=== PATIENT | female | born 1970 | race Caucasian/White ===

== ENCOUNTER 2016-05-06 11:27 | Emergency (ER) | payer OTHER ==
[~2016-05-06] VITALS: Ht 165.1 cm; Wt 105.6 kg
[~2016-05-06 11:27] MED LIST: ALBU1AER9 INH; BCPILLS PO; CHOL100010 PO; CYM/30 PO; LORA-741 PO; MECL1TAB42 PO; MELA1TAB3 PO; NPR500 PO; TIZA6CAP PO; TRAM-10 PO
[2016-05-06 11:32] VITALS: TEMP 36.9; Ht 165.1 cm; Wt 105.6 kg
[2016-05-06] MEDS ORDERED: ERGO1CAP41 PO (11:43)
[2016-05-06] MEDS ORDERED: GABA-112 PO (11:44)
[2016-05-06] MEDS ORDERED: OMEP40CA PO (11:44)
[2016-05-06] MEDS ORDERED: BND25 PO (11:45)
[2016-05-06] MEDS ORDERED: PROCHLORPERAZINE 5 MG/ML 2 ML VIAL IV STA (12:15)
[2016-05-06] MEDS ORDERED: DiphenhydrAMINE HCL 50 MG/ML VIAL IV STA (12:15)
[2016-05-06] MEDS ORDERED: SODIUM CHLORIDE 0.9% 500ML 500 ML IV STA (12:15)
[2016-05-06] MEDS ORDERED: ASPIRIN 81 MG CHEW PO STA (12:15)
--- NOTE | 2016-05-06 12:27 | EMERGENCY ROOM VISIT NOTE ---
History Report prepared by Nafisa: Valeria Monzon Under the Supervision of: Dr. Juli Latif M.D. First contact with patient: 12:10 Chief Complaint: HYPERTENSION Stated Complaint: CHEST/SHOULDER/ARM PAIN, ALANIZ, SOB, NAUSEA, DIZZY History of Present Illness The patient is a 45 year old female who presents to the Emergency Room with complaints of chest pain that has been constant over the past week. She also developed bilateral arm pain that extends further down her left arm than her right when her chest pain began. She has had chest pains in the past, but nothing that has persisted as long as this. Today, her chest pain is not as bad as it has been over the past few days. About 2.5 days ago, the patient developed a "massive" headache at the top of her head. Last night it eased up some and today it has been coming in jolts of stabbing pain that radiate through her jaw. She states that she does not typically get headaches. She also has been nauseated since her headache started. Today, the patient took her blood pressure and it was 145/90, which is high for her. She gets her blood pressure annually at her PCP office and it has always been normal or low. She notes that she does have a history of anxiety but does not have any personal history of hypertension, heart disease, or diabetes. There is a family history of heart disease and hypertension. The patient has an appointment scheduled with her PCP, Dr. Dela Cruz, next week. She called the office today regarding her symptoms and was referred to the emergency room. The patient reports that she occasionally takes Naproxen for chronic pain but does not take it daily. She took a dose yesterday but has not taken anything for pain today. She has not taken aspirin. Source of History: patient Onset: a week ago Position: chest Timing: constant Associated Symptoms: + headache, + nausea Note: Other complaints: Bilateral arm pain Review of Systems See HPI for pertinent positives & negatives. A total of 10 systems reviewed and were otherwise negative. Past Medical & Surgical Surgical Problems: (1) History of hysterectomy (2) History of tonsillectomy Family History Heart disease Hypertension Social History Smoking Status: Current Every Day Smoker Alcohol Use: occasionally Marital Status: Occupation Status: employed Current/Historical Medications Scheduled Duloxetine Hcl (Cymbalta), 60 MG PO DAILY Ergocalciferol (Vitamin D 57999 Unit), 1 TAB PO WK Gabapentin (Neurontin), 200 MG PO TID Melatonin-Pyridoxine (Melatonin), 10 MG PO HS Omeprazole (Prilosec), 40 MG PO DAILY Scheduled PRN Albuterol Sulfate (Proair Hfa), 2 PUFF INH QID PRN for bronchitis Diphenhydramine Hcl (Benadryl), 50 MG PO HS PRN for Sleep Lorazepam (Ativan), 0.5-1 MG PO TID PRN for Anxiety Meclizine Hcl (Meclizine Hcl), 25 MG PO TID PRN for Dizziness or Vertigo Naproxen (Naprosyn), 500 MG PO BID PRN for Pain Tizanidine (Zanaflex), 6 MG PO HS PRN for muscle spasms Tramadol (Ultram), 50 MG PO Q6 PRN for Pain Allergies Coded Allergies: Codeine (Verified Allergy, Unknown, HIVES, 05/06/16) Procaine (Unverified Allergy, Unknown, SHAKING, 05/06/16) Serotonin Reuptake Inhibitors (Unverified Allergy, Unknown, ARRHYTHMIA, ) Replaces EFFEXOR-XR Venlafaxine (Unverified Allergy, Unknown, ARRHYTHMIA, 05/06/16) Replaces EFFEXOR-XR Physical Exam Vital Signs Date Time Temp Pulse Resp B/P Pulse Ox O2 Delivery O2 Flow Rate FiO2 05/06/16 15:36 78 20 118/75 99 05/06/16 14:08 76 20 113/75 21 05/06/16 13:01 74 20 143/85 97 Room Air 05/06/16 12:21 80 05/06/16 11:32 36.9 88 18 145/83 96 Room Air Physical Exam Vital signs reviewed. General: Well-appearing 45 year old female, in no significant distress. HEENT: No scleral icterus, PERRLA, neck supple. Atraumatic. Cardiovascular: Regular rate and rhythm, no extra sounds. Pulmonary: Clear to auscultation bilaterally, normal work of breathing. Abdomen: Obese abdomen, soft, nontender, nondistended, positive bowel sounds. Musculoskeletal: Atraumatic, no peripheral edema. Neurologic: Patient awake alert and oriented x 3 Skin: Warm, dry, no rash Medical Decision & Procedures ER Provider Diagnostic Interpretation: X-ray results as stated below per interpretation by me and the radiologist: CHEST ONE VIEW PORTABLE HISTORY: Atypical chest pain. Headache. Hypertension. COMPARISON: Chest 08/07/2013. FINDINGS: The lungs are clear. Cardiac silhouette is normal in size. No pleural effusions. No pneumothorax. IMPRESSION: No acute process. Electronically signed by: Mich Miller M.D. 05/06/2016 12:58 PM Dictated Date/Time: 05/06/2016 12:57 PM Laboratory Results 05/06/16 12:35 Red Blood Count 4.87, Mean Corpuscular Volume 89.3, Mean Corpuscular Hemoglobin 31.6, Mean Corpuscular Hemoglobin Concent 35.4, Mean Platelet Volume 9.9, Neutrophils (%) (Auto) 63.8, Lymphocytes (%) (Auto) 26.2, Monocytes (%) (Auto) 7.6, Eosinophils (%) (Auto) 1.7, Basophils (%) (Auto) 0.5, Neutrophils # (Auto) 5.83, Lymphocytes # (Auto) 2.40, Monocytes # (Auto) 0.70, Eosinophils # (Auto) 0.16, Basophils # (Auto) 0.05 05/06/16 12:35 Test 05/06/16 12:35 05/06/16 12:41 White Blood Count 9.16 K/uL (4.8-10.8) Red Blood Count 4.87 M/uL (4.2-5.4) Hemoglobin 15.4 g/dL (12.0-16.0) Hematocrit 43.5 % (37-47) Mean Corpuscular Volume 89.3 fL (80-100) Mean Corpuscular Hemoglobin 31.6 pg (25-34) Mean Corpuscular Hemoglobin Concent 35.4 g/dl (32-36) Platelet Count 270 K/uL (130-400) Mean Platelet Volume 9.9 fL (7.4-10.4) Neutrophils (%) (Auto) 63.8 % Lymphocytes (%) (Auto) 26.2 % Monocytes (%) (Auto) 7.6 % Eosinophils (%) (Auto) 1.7 % Basophils (%) (Auto) 0.5 % Neutrophils # (Auto) 5.83 K/uL (1.4-6.5) Lymphocytes # (Auto) 2.40 K/uL (1.2-3.4) Monocytes # (Auto) 0.70 K/uL (0.11-0.59) Eosinophils # (Auto) 0.16 K/uL (0-0.5) Basophils # (Auto) 0.05 K/uL (0-0.2) RDW Standard Deviation 41.5 fL (36.4-46.3) RDW Coefficient of Variation 12.8 % (11.5-14.5) Immature Granulocyte % (Auto) 0.2 % Immature Granulocyte # (Auto) 0.02 K/uL (0.00-0.02) Anion Gap 10.0 mmol/L (3-11) Est Creatinine Clear Calc Drug Dose 93.2 ml/min Estimated GFR () 86.6 Estimated GFR (Non- 74.7 BUN/Creatinine Ratio 12.5 (10-20) Calcium Level 8.8 mg/dl (8.5-10.1) Magnesium Level 2.2 mg/dl (1.8-2.4) Total Bilirubin 0.4 mg/dl (0.2-1) Direct Bilirubin < 0.1 mg/dl (0-0.2) Aspartate Amino Transf (AST/SGOT) 23 U/L (15-37) Alanine Aminotransferase (ALT/SGPT) 41 U/L (12-78) Alkaline Phosphatase 108 U/L (45-117) Total Creatine Kinase 126 U/L (26-192) Creatine Kinase MB 1.9 ng/ml (0.5-3.6) Creatine Kinase MB Ratio 1.5 (0-3.0) Total Protein 7.2 gm/dl (6.4-8.2) Albumin 3.8 gm/dl (3.4-5.0) Thyroid Stimulating Hormone (TSH) 2.710 uIu/ml (0.300-4.500) Bedside D-Dimer 171 ng/mlFEU (0-450) Bedside Troponin I 0.010 ng/ml (0-0.045) Laboratory results per my review. Medications Administered Medications (Trade) Dose Ordered Sig/Casa Route Start Time Stop Time Status Last Admin Dose Admin Aspirin (Aspirin Chew) 324 mg NOW STAT PO 05/06/16 12:15 05/06/16 12:18 DC 05/06/16 12:49 324 MG Prochlorperazine Edisylate (Compazine Inj) 10 mg NOW STAT IV 05/06/16 12:15 05/06/16 12:18 DC 05/06/16 12:49 10 MG Diphenhydramine HCl 25 mg 25 mg NOW STAT IV 05/06/16 12:15 05/06/16 12:18 DC 05/06/16 12:49 25 MG Sodium Chloride (Nss 500ml) 500 ml @ 999 mls/hr Q31M STAT IV 05/06/16 12:15 05/06/16 12:46 DC 05/06/16 12:50 999 MLS/HR ECG Indication: chest pain Rate (beats per minute): 81 Rhythm: normal sinus Findings: no acute ischemic change, no ectopy ED Course 1213: The patient was evaluated in room C3. A complete history and physical examination was performed. 1215: Ordered NSS 500 ml @ 999 mls/hr IV, Benadryl Inj 25 mg IV, Compazine Inj 10 mg IV, Aspirin 324 mg PO. 1416: Upon reevaluation, the patient appeared to have improvement of her symptoms. I discussed findings with the patient. She verbalized agreement of the treatment plan. The patient was discharged home. Medical Decision Differential diagnosis: Acute coronary syndrome, pulmonary embolus, aortic dissection, musculoskeletal pain, pneumonia, pleural effusion, pneumothorax, hypertensive urgency, intracranial mass, intracranial hemorrhage. This patient was evaluated and appeared to be in no significant distress. Physical examination is fairly unrevealing. The patient was given aspirin to chew. She was given IV Compazine and Benadryl for her headache. Laboratory work is fairly unrevealing. Chest x-ray is negative for acute infiltrate. EKG reveals no evidence of acute ischemia. Patient was reassured regarding the findings. She felt well and ready for discharge. She was observed until she could obtain a ride home after the above medications. She will follow-up with her primary care physician this week and return to the ER for worsening of symptoms or any medical concerns. Impression Primary Impression: Constricting chest pain often radiating down left upper extremity Additional Impressions: Headache Hypertension Scribe Attestation The scribe's documentation has been prepared under my direction and personally reviewed by me in its entirety. I confirm that the note above accurately reflects all work, treatment, procedures, and medical decision making performed by me. Departure Information Dispostion Home / Self-Care Referrals Edna Dela Cruz D.O. (PCP) Patient Instructions My [facility] Additional Instructions Diagnosis: Hypertension, chest pain, headache Minimize Aleve use. Drink plenty of clear fluids. Follow-up with your physician this week for consideration of further cardiac testing and blood pressure recheck. Return to the ER for worsening of symptoms or any medical concerns. Problem Qualifiers Additional Impressions: Headache Headache type: new daily persistent Qualified Codes: G44.52 - New daily persistent headache (ndph) Hypertension Hypertension type: essential hypertension Qualified Codes: I10 - Essential ( primary) hypertension
[2016-05-06 12:44] LABS: BASO % 0.5 %; BASO ABS # 0.05 K/uL (0-0.2); COMPLETE YES; EOS % 1.7 %; HEMATOCRIT 43.5 % (37-47); IG% 0.2 %; LYMPH % 26.2 %; MEAN CELL VOLUME 89.3 fL (80-100); MEAN CORPUSCULAR HEMOGLOBIN 31.6 pg (25-34); MEAN CORPUSCULAR HGB CONC 35.4 g/dl (32-36); MEAN PLATELET VOLUME 9.9 fL (7.4-10.4); MONO % 7.6 %; NEUT % 63.8 %; PLATELET COUNT 270 K/uL (130-400); RED BLOOD COUNT 4.87 M/uL (4.2-5.4); WHITE BLOOD COUNT 9.16 K/uL (4.8-10.8)
[2016-05-06 12:57] LABS: POINT OF CARE TROPONIN I 0.01 ng/ml (0-0.045)
--- NOTE | 2016-05-06 13:00 | DIAGNOSTIC IMAGING REPORT ---
CHEST ONE VIEW PORTABLE HISTORY: Atypical chest pain. Headache. Hypertension. COMPARISON: Chest 08/07/2013. FINDINGS: The lungs are clear. Cardiac silhouette is normal in size. No pleural effusions. No pneumothorax. IMPRESSION: No acute process. Electronically signed by: Mich Miller M.D. 05/06/2016 12:58 PM Dictated Date/Time: 05/06/2016 12:57 PM
[2016-05-06 13:04] LABS: ALT/SGPT 41 U/L (12-78); AST/SGOT 23 U/L (15-37); BLOOD UREA NITROGEN 12 mg/dl (7-18); BUN/CREATININE RATIO 12.5 (10-20); CALCIUM 8.8 mg/dl (8.5-10.1); CARBON DIOXIDE 23 mmol/L (21-32); CHLORIDE 107 mmol/L (98-107); CREATININE 0.93 mg/dl (0.60-1.20); GLUCOSE 84 mg/dl (70-99); MAGNESIUM 2.2 mg/dl (1.8-2.4); POTASSIUM 3.9 mmol/L (3.5-5.1); SODIUM 140 mmol/L (136-145)
[2016-05-06 13:15] LABS: ALKALINE PHOSPHATASE 108 U/L (45-117); CKMB/CK RATIO 1.5 (0-3.0)
[2016-05-06 15:36] VITALS: BP 118/75; PULSE 78; O2SAT 99
== END 2016-05-06 15:38 | disposition home or self-care (01) ==
LOC: C.EDB 11:28 → C.EDC 15:38
DX: R07.9 Chest pain, unspecified (principal); R51 Headache; I10 Essential (primary) hypertension; Z90.710 Acquired absence of both cervix and uterus; Z90.89 Acquired absence of other organs; F17.200 Nicotine dependence, unspecified, uncomplicated; Z82.49 Family history of ischemic heart disease and other diseases of the circulatory system; Z88.5 Allergy status to narcotic agent